=== PATIENT | female | born 1990 | race Caucasian/White ===

== ENCOUNTER → 2016-08-02 | Outpatient (CLI) | payer OTHER ==
[~2016-08-02] MED LIST: DAILY MULTIPLE1 EAC2 PO; TOPAMAX100 MG PO; TOPAMAX50 MG PO; TYLENOL EXTRA500 MG PO; TYLENOL WITH CODEINE; VITAMIN E400 UNIT PO
== END | disposition home or self-care (01) ==
LOC: RES 09:50
DX: R94.2 Abnormal results of pulmonary function studies (principal)
CPT/HCPCS: 94060; 94726; 94729

== ENCOUNTER → 2016-09-30 | Outpatient (CLI) | payer OTHER | END | disposition home or self-care (01) | LOC: RES 09:54 | DX: R06.02 Shortness of breath (principal); R05 Cough | CPT/HCPCS: 71020; 94060; 94726; 94729 ==

== ENCOUNTER → 2016-11-18 | Outpatient (CLI) | payer OTHER | END | disposition home or self-care (01) | LOC: NUC 09:00 | DX: Z08 Encounter for follow-up examination after completed treatment for malignant neoplasm (principal); C56.9 Malignant neoplasm of unspecified ovary; C78.7 Secondary malignant neoplasm of liver and intrahepatic bile duct; C79.89 Secondary malignant neoplasm of other specified sites | CPT/HCPCS: 78472; A9512; A9560 ==